=== PATIENT | female | born 1955 | race Caucasian/White ===

== ENCOUNTER 2021-09-08 09:00 | Outpatient (CLI) | payer BC, SELFPAY ==
--- NOTE | 2021-09-08 09:24 | MM_ITS ---
WS: [id number] BILATERAL SCREENING DIGITAL WITH CAD, 2-D only. HISTORY: SCREENING COMPARISON: 11/10/2018 and 08/15/2013 Bilateral CC and MLO views with tomosynthesis and synthetic mammography submitted. Computer aided det ection analyzed. Breast composition: There are scattered areas of fibroglandular density. No suspicious masses, microc alcifications or architectural distortion. Benign calcifications in each breast. No suspicious groupi ng or cluster of calcification. MM/[id number] IMPRESSION: BI-RADS: 2-Benign FOLLOW UP: 1 Year Follow-up
== END 2021-09-08 09:01 | disposition home or self-care (01) ==
LOC: RAD 09:06
PROVIDERS: Visit Provider Internal Medicine
DX: Z12.31 Encounter for screening mammogram for malignant neoplasm of breast (principal)
CPT/HCPCS: 77067